=== PATIENT | female | born 1945 | race Two or more races ===

== ENCOUNTER → 2016-07-05 | Outpatient (CLI) | payer MEDICARE, OTHER | END | disposition home or self-care (01) | LOC: RADPV 09:10 | PROVIDERS: ATTEND Internal Medicine Cardiovascular Disease | DX: I50.9 Heart failure, unspecified (principal); I35.9 Nonrheumatic aortic valve disorder, unspecified; I51.7 Cardiomegaly; I35.1 Nonrheumatic aortic (valve) insufficiency; I70.8 Atherosclerosis of other arteries; I34.0 Nonrheumatic mitral (valve) insufficiency; I37.1 Nonrheumatic pulmonary valve insufficiency | CPT/HCPCS: 93306 ==

== ENCOUNTER → 2017-05-01 | Outpatient (CLI) | payer MEDICARE, OTHER | END | disposition home or self-care (01) | LOC: RADPV 11:46 | PROVIDERS: ATTEND Internal Medicine Cardiovascular Disease | DX: I08.3 Combined rheumatic disorders of mitral, aortic and tricuspid valves (principal) | CPT/HCPCS: 93306 ==

== ENCOUNTER 2019-04-09 15:46 | Inpatient (IN) | payer MEDICARE, OTHER ==
[~2019-04-09] VITALS: Ht 162.6 cm; Wt 122.5 kg
[2019-04-09] MEDS ORDERED: WARF3TAB29 PO (15:57)
[2019-04-09] MEDS ORDERED: ESCI20TA PO (15:57)
[2019-04-09] MEDS ORDERED: AMLO10TA7 PO (15:57)
[2019-04-09] MEDS ORDERED: METO-558 PO (15:57)
[2019-04-09] MEDS ORDERED: LISI-662 PO (15:57)
[2019-04-09] MEDS ORDERED: CLON.2 PO (15:57)
[2019-04-09] MEDS ORDERED: TIOT185 IH (15:57)
[2019-04-09 16:10] LABS: BASOPHILS % (AUTO) 0.6 % (0.0-2.0); EOSINOPHILS % (AUTO) 0 % (1.0-6.0); HEMATOCRIT 33.5 % (36-46); HEMOGLOBIN 10.7 g/dL (12.0-16.0); LYMPHOCYTES # (AUTO) 0.8 K/uL (1.0-4.8); LYMPHOCYTES % (AUTO) 11.6 % (22.0-44.0); MEAN CORPUSCULAR VOLUME 81 fL (80-100); MONOCYTES # (AUTO) 0.4 K/uL (0.1-1.0); MONOCYTES % (AUTO) 6.3 % (2.0-9.0); NEUTROPHILS # (AUTO) 5.8 K/uL (1.8-7.7); NEUTROPHILS % (AUTO) 81.5 % (40.0-70.0); PLATELET COUNT (AUTO) 268 K/uL (150-450); RED BLOOD CELL COUNT(AUTO) 4.14 MIL/uL (4.00-5.20); RED CELL DISTRIBUTION WIDTH 16.9 % (11.5-14.5)
[2019-04-09] MEDS ORDERED: ASPIRIN 81 MG CHEWABLE TABLET PO ONE (16:15)
[2019-04-09 16:30] LABS: ANION GAP 10 mmol/L (8-16); CALCIUM, TOTAL 8.6 mg/dL (8.8-10.5); CARBON DIOXIDE 28 mmol/L (22-29); CHLORIDE 102 mmol/L (98-107); CREATININE 0.76 mg/dL (0.60-1.30); GLUCOSE,RANDOM 113 mg/dL (70-110); POTASSIUM 3.7 mmol/L (3.5-5.1); SODIUM SERUM 140 mmol/L (136-145); UREA NITROGEN, BLOOD 12 mg/dL (7-18)
[2019-04-09 16:37] LABS: ALANINE AMINOTRANSFERASE 42 U/L (12-78); ALBUMIN 3.5 g/dL (3.4-5.0); ALKALINE PHOSPHATASE 134 U/L (46-116); ASPARTATE AMINOTRANSFERASE 38 U/L (15-37); BILIRUBIN,TOTAL 1.1 mg/dL (0.1-1.0); CREATINE KINASE, TOTAL ONLY 42 U/L (26-192); TOTAL PROTEIN, SERUM 7.3 g/dL (6.4-8.2)
[2019-04-09 16:38] LABS: GLOMERULAR FILTR. RATE CALC > 60 mL/min (>60)
[2019-04-09 16:57] LABS: B-TYPE NATRIURETIC PEPTIDE 518 pg/mL (0-100)
[2019-04-09] MEDS ORDERED: FUROSEMIDE 40 MG/4 ML VIAL IVP ONE ×2 (17:00→21:30)
[2019-04-09 18:20] LABS: APPEARANCE,URINE CLEAR (CLEAR); BILIRUBIN,URINE NEGATIVE (NEGATIVE); GLUCOSE, URINE (UA) NEGATIVE (NEGATIVE); KETONES,URINE NEGATIVE (NEGATIVE); LEUKOCYTE ESTERASE ,URINE NEGATIVE (NEGATIVE); NITRATE,URINE NEGATIVE (NEGATIVE); OCCULT BLOOD,URINE NEGATIVE (NEGATIVE); PH,URINE 6.5 (5.0-8.0); PROTEIN,URINE TRACE (NEGATIVE); UROBILINOGEN,URINE 0.2 mg/dL (<=1.0)
[2019-04-09] MEDS ORDERED: OSELTAMIVIR PHOSPHATE 75 MG CAPSULE PO ONE (21:30)
[2019-04-09] MEDS ORDERED: MAGNESIUM SULFATE 4 GM/WATER 100 ML IV PRN (22:00)
[2019-04-09] MEDS ORDERED: POTASSIUM CHLORIDE 20 MEQ ER TABLET PO PRN (22:00)
[2019-04-09] MEDS ORDERED: ALBUTEROL SULFATE 2.5 MG/0.5 ML NEB SOLUTION NEB PRN (22:00)
[2019-04-09] MEDS ORDERED: ZOLPIDEM TARTRATE 5 MG TABLET PO PRN (22:00)
[2019-04-09] MEDS ORDERED: MAGNESIUM OXIDE 400 MG TABLET PO PRN (22:00)
[2019-04-09] MEDS ORDERED: MAGNESIUM SULFATE 2 GM/WATER 50 ML IV PRN (22:00)
[2019-04-09] MEDS ORDERED: IPRATROPIUM BROMIDE 0.5 MG/2.5 ML NEB SOLUTION NEB PRN (22:00)
[2019-04-09] MEDS ORDERED: 0.9% SODIUM CHLORIDE 10 ML SYRINGE IVP PRN (22:00)
[2019-04-09] MEDS ORDERED: ONDANSETRON HCL 4 MG/2 ML VIAL IVP PRN (22:00)
[2019-04-09 23:17] LABS: INFLUENZA TYPE A NEGATIVE FOR TYPE A (NEGATIVE); INFLUENZA TYPE B NEGATIVE FOR TYPE B (NEGATIVE)
[2019-04-10] MEDS: HEPARIN SODIUM,PORCINE 5,000 UNITS/ML VIAL SQ SCH ×4 (00:02→23:46)
[2019-04-10] MEDS: ALBUTEROL SULFATE 2.5 MG/0.5 ML NEB SOLUTION NEB SCH ×4 (02:31→20:43)
[2019-04-10] MEDS: IPRATROPIUM BROMIDE 0.5 MG/2.5 ML NEB SOLUTION NEB SCH ×4 (02:31→20:43)
[2019-04-10 06:40] LABS: BASOPHILS % (AUTO) 0.4 % (0.0-2.0); EOSINOPHILS % (AUTO) 0.1 % (1.0-6.0); HEMATOCRIT 33.1 % (36-46); HEMOGLOBIN 10.6 g/dL (12.0-16.0); LYMPHOCYTES % (AUTO) 14.8 % (22.0-44.0); MEAN CORPUSCULAR HEMOGLOBIN 26.1 pg (26.0-34.0); MEAN CORPUSCULAR HGB CONC 32.2 G/dL (31.0-37.0); MEAN CORPUSCULAR VOLUME 81 fL (80-100); MONOCYTES # (AUTO) 0.8 K/uL (0.1-1.0); MONOCYTES % (AUTO) 11.7 % (2.0-9.0); NEUTROPHILS # (AUTO) 4.9 K/uL (1.8-7.7); PLATELET COUNT (AUTO) 265 K/uL (150-450); RED BLOOD CELL COUNT(AUTO) 4.08 MIL/uL (4.00-5.20); RED CELL DISTRIBUTION WIDTH 16.8 % (11.5-14.5)
[2019-04-10 06:53] LABS: ANION GAP 6 mmol/L (8-16); CALCIUM, TOTAL 8.6 mg/dL (8.8-10.5); CARBON DIOXIDE 34 mmol/L (22-29); CHLORIDE 102 mmol/L (98-107); CREATININE 0.89 mg/dL (0.60-1.30); GLUCOSE,RANDOM 94 mg/dL (70-110); POTASSIUM 3.5 mmol/L (3.5-5.1); SODIUM SERUM 142 mmol/L (136-145); UREA NITROGEN, BLOOD 12 mg/dL (7-18)
[2019-04-10 06:56] LABS: GLOMERULAR FILTR. RATE CALC > 60 mL/min (>60)
[2019-04-10] MEDS: PANTOPRAZOLE SODIUM 40 MG DR TABLET PO SCH (08:43)
[2019-04-10] MEDS ORDERED: OSELTAMIVIR PHOSPHATE 75 MG CAPSULE PO SCH (09:00)
[2019-04-10] MEDS: METOPROLOL SUCCINATE 50 MG ER TABLET PO SCH (09:17)
[2019-04-10] MEDS: AmLODIPine BESYLATE 10 MG TABLET PO SCH (09:18)
[2019-04-10] MEDS: LISINOPRIL 20 MG TABLET PO SCH (09:18)
[2019-04-10] MEDS: ESCITALOPRAM OXALATE 20 MG TABLET PO SCH (09:19)
[2019-04-10] MEDS: CloNIDine HCL 0.2 MG TABLET PO SCH (09:21)
[2019-04-10] MEDS: FUROSEMIDE 40 MG/4 ML VIAL IVP SCH ×2 (12:13→21:00)
[2019-04-10] MEDS ORDERED: PERFLUTREN PROTEIN-A MICROSPHERES 0.22 MG/ML 3 ML VIAL IVP ONE ×2 (12:15→13:00)
[2019-04-10 16:32] VITALS: BP 155/94
[2019-04-10 18:45] VITALS: BP 136/76
[2019-04-10 20:05] VITALS: BP 116/83
[2019-04-10 22:57] VITALS: BP 121/82
[2019-04-11] MEDS: ALBUTEROL SULFATE 2.5 MG/0.5 ML NEB SOLUTION NEB SCH ×4 (02:45→20:06)
[2019-04-11] MEDS: IPRATROPIUM BROMIDE 0.5 MG/2.5 ML NEB SOLUTION NEB SCH ×4 (02:45→20:06)
[2019-04-11 04:15] VITALS: BP 131/82
[2019-04-11] MEDS: HEPARIN SODIUM,PORCINE 5,000 UNITS/ML VIAL SQ SCH ×3 (08:00→23:31)
[2019-04-11 08:42] VITALS: BP 137/79
[2019-04-11] MEDS: METOPROLOL SUCCINATE 50 MG ER TABLET PO SCH (09:00)
[2019-04-11] MEDS: CloNIDine HCL 0.2 MG TABLET PO SCH (09:00)
[2019-04-11] MEDS: FUROSEMIDE 40 MG/4 ML VIAL IVP SCH ×2 (09:07→21:03)
[2019-04-11] MEDS: AmLODIPine BESYLATE 10 MG TABLET PO SCH (09:08)
[2019-04-11] MEDS: ESCITALOPRAM OXALATE 20 MG TABLET PO SCH (09:08)
[2019-04-11] MEDS: PANTOPRAZOLE SODIUM 40 MG DR TABLET PO SCH (09:09)
[2019-04-11] MEDS: LISINOPRIL 20 MG TABLET PO SCH (09:09)
[2019-04-11 09:34] LABS: BASOPHILS % (AUTO) 0.4 % (0.0-2.0); EOSINOPHILS % (AUTO) 0.8 % (1.0-6.0); HEMATOCRIT 33.6 % (36-46); HEMOGLOBIN 10.6 g/dL (12.0-16.0); LYMPHOCYTES # (AUTO) 1.1 K/uL (1.0-4.8); LYMPHOCYTES % (AUTO) 14.5 % (22.0-44.0); MEAN CORPUSCULAR HGB CONC 31.6 G/dL (31.0-37.0); MEAN CORPUSCULAR VOLUME 82 fL (80-100); MONOCYTES # (AUTO) 0.5 K/uL (0.1-1.0); MONOCYTES % (AUTO) 6.3 % (2.0-9.0); NEUTROPHILS # (AUTO) 5.7 K/uL (1.8-7.7); PLATELET COUNT (AUTO) 281 K/uL (150-450); RED BLOOD CELL COUNT(AUTO) 4.09 MIL/uL (4.00-5.20); RED CELL DISTRIBUTION WIDTH 16.5 % (11.5-14.5)
[2019-04-11 09:45] LABS: CALCIUM, TOTAL 8.3 mg/dL (8.8-10.5); CREATININE 0.95 mg/dL (0.60-1.30); MAGNESIUM 1.4 mg/dL (1.80-2.40)
[2019-04-11 09:49] LABS: POTASSIUM 2.6 mmol/L (3.5-5.1)
[2019-04-11] MEDS ORDERED: SODIUM CHLORIDE 0.9% 1,000 ML ONE (09:59)
[2019-04-11] MEDS: POTASSIUM CHL 10 MEQ/WATER 50 ML IV PRN ×4 (10:26→13:37)
[2019-04-11 12:53] VITALS: BP 123/96
[2019-04-11 16:43] VITALS: BP 167/95
[2019-04-11 20:16] VITALS: BP 166/99
[2019-04-12 00:20] VITALS: BP 133/78
[2019-04-12] MEDS: IPRATROPIUM BROMIDE 0.5 MG/2.5 ML NEB SOLUTION NEB SCH ×4 (02:11→20:22)
[2019-04-12] MEDS: ALBUTEROL SULFATE 2.5 MG/0.5 ML NEB SOLUTION NEB SCH ×4 (02:12→20:22)
[2019-04-12 04:24] VITALS: BP 136/81
[2019-04-12 08:20] LABS: BASOPHILS % (AUTO) 0.7 % (0.0-2.0); EOSINOPHILS % (AUTO) 0.8 % (1.0-6.0); HEMATOCRIT 35.5 % (36-46); HEMOGLOBIN 11.5 g/dL (12.0-16.0); LYMPHOCYTES % (AUTO) 13.1 % (22.0-44.0); MEAN CORPUSCULAR HEMOGLOBIN 26.4 pg (26.0-34.0); MEAN CORPUSCULAR HGB CONC 32.3 G/dL (31.0-37.0); MEAN CORPUSCULAR VOLUME 82 fL (80-100); MONOCYTES # (AUTO) 0.7 K/uL (0.1-1.0); MONOCYTES % (AUTO) 9.2 % (2.0-9.0); NEUTROPHILS # (AUTO) 5.9 K/uL (1.8-7.7); NEUTROPHILS % (AUTO) 76.2 % (40.0-70.0); PLATELET COUNT (AUTO) 310 K/uL (150-450); RED BLOOD CELL COUNT(AUTO) 4.35 MIL/uL (4.00-5.20); RED CELL DISTRIBUTION WIDTH 16.5 % (11.5-14.5)
[2019-04-12 08:27] LABS: ANION GAP 6 mmol/L (8-16); CARBON DIOXIDE 37 mmol/L (22-29); CHLORIDE 100 mmol/L (98-107); CREATININE 0.87 mg/dL (0.60-1.30); GLUCOSE,RANDOM 112 mg/dL (70-110); POTASSIUM 3.3 mmol/L (3.5-5.1); SODIUM SERUM 143 mmol/L (136-145); UREA NITROGEN, BLOOD 12 mg/dL (7-18)
[2019-04-12 08:28] LABS: GLOMERULAR FILTR. RATE CALC > 60 mL/min (>60)
[2019-04-12 08:32] VITALS: BP 141/86
[2019-04-12] MEDS: FUROSEMIDE 40 MG/4 ML VIAL IVP SCH ×2 (09:05→16:23)
[2019-04-12] MEDS: AmLODIPine BESYLATE 10 MG TABLET PO SCH (09:05)
[2019-04-12] MEDS: METOPROLOL SUCCINATE 50 MG ER TABLET PO SCH (09:06)
[2019-04-12] MEDS: CloNIDine HCL 0.2 MG TABLET PO SCH (09:06)
[2019-04-12] MEDS: ESCITALOPRAM OXALATE 20 MG TABLET PO SCH (09:06)
[2019-04-12] MEDS: LISINOPRIL 20 MG TABLET PO SCH (09:06)
[2019-04-12] MEDS: PANTOPRAZOLE SODIUM 40 MG DR TABLET PO SCH (09:08)
[2019-04-12] MEDS: HEPARIN SODIUM,PORCINE 5,000 UNITS/ML VIAL SQ SCH ×3 (09:14→23:55)
[2019-04-12 12:05] VITALS: BP 100/56
[2019-04-12 16:33] VITALS: BP 129/84
[2019-04-12 20:05] VITALS: BP 148/75
[2019-04-13] VITALS (7 sets, daily range): BP systolic 113–129; BP diastolic 50–79
[2019-04-13] MEDS: ALBUTEROL SULFATE 2.5 MG/0.5 ML NEB SOLUTION NEB SCH ×4 (03:17→20:43)
[2019-04-13] MEDS: IPRATROPIUM BROMIDE 0.5 MG/2.5 ML NEB SOLUTION NEB SCH ×4 (03:18→20:43)
[2019-04-13 05:36] LABS: BASOPHILS % (AUTO) 0.7 % (0.0-2.0); EOSINOPHILS % (AUTO) 2.5 % (1.0-6.0); HEMATOCRIT 32.4 % (36-46); HEMOGLOBIN 10.3 g/dL (12.0-16.0); LYMPHOCYTES % (AUTO) 16.2 % (22.0-44.0); MEAN CORPUSCULAR HGB CONC 31.8 G/dL (31.0-37.0); MEAN CORPUSCULAR VOLUME 82 fL (80-100); MONOCYTES # (AUTO) 0.6 K/uL (0.1-1.0); MONOCYTES % (AUTO) 9.6 % (2.0-9.0); NEUTROPHILS # (AUTO) 4.5 K/uL (1.8-7.7); PLATELET COUNT (AUTO) 262 K/uL (150-450); RED BLOOD CELL COUNT(AUTO) 3.97 MIL/uL (4.00-5.20); RED CELL DISTRIBUTION WIDTH 16.9 % (11.5-14.5)
[2019-04-13 05:42] LABS: ANION GAP 6 mmol/L (8-16); CALCIUM, TOTAL 8.3 mg/dL (8.8-10.5); CARBON DIOXIDE 36 mmol/L (22-29); CHLORIDE 100 mmol/L (98-107); CREATININE 0.91 mg/dL (0.60-1.30); GLUCOSE,RANDOM 101 mg/dL (70-110); POTASSIUM 3.7 mmol/L (3.5-5.1); SODIUM SERUM 142 mmol/L (136-145); UREA NITROGEN, BLOOD 15 mg/dL (7-18)
[2019-04-13 05:49] LABS: GLOMERULAR FILTR. RATE CALC > 60 mL/min (>60)
[2019-04-13 05:59] LABS: B-TYPE NATRIURETIC PEPTIDE 230 pg/mL (0-100)
[2019-04-13] MEDS: HEPARIN SODIUM,PORCINE 5,000 UNITS/ML VIAL SQ SCH ×2 (08:36→16:00)
[2019-04-13] MEDS: CloNIDine HCL 0.2 MG TABLET PO SCH (08:37)
[2019-04-13] MEDS: FUROSEMIDE 40 MG/4 ML VIAL IVP SCH ×2 (08:37→16:00)
[2019-04-13] MEDS: PANTOPRAZOLE SODIUM 40 MG DR TABLET PO SCH (08:37)
[2019-04-13] MEDS: METOPROLOL SUCCINATE 50 MG ER TABLET PO SCH (08:37)
[2019-04-13] MEDS: AmLODIPine BESYLATE 10 MG TABLET PO SCH (10:36)
[2019-04-13] MEDS: ESCITALOPRAM OXALATE 20 MG TABLET PO SCH (10:36)
[2019-04-13] MEDS: LISINOPRIL 20 MG TABLET PO SCH (10:36)
[2019-04-13] MEDS: ACETAMINOPHEN 325 MG TABLET PO PRN (18:29)
[2019-04-13] MEDS: APIXABAN 5 MG TABLET PO SCH (20:40)
[2019-04-14] MEDS: HEPARIN SODIUM,PORCINE 5,000 UNITS/ML VIAL SQ SCH ×4 (00:44→23:49)
[2019-04-14] MEDS: IPRATROPIUM BROMIDE 0.5 MG/2.5 ML NEB SOLUTION NEB SCH ×4 (02:00→20:23)
[2019-04-14] MEDS: ALBUTEROL SULFATE 2.5 MG/0.5 ML NEB SOLUTION NEB SCH ×4 (02:00→20:23)
[2019-04-14 03:45] VITALS: BP 139/71
[2019-04-14] MEDS ORDERED: INFLUENZA VIRUS VACCINE QVS 2019-20 (3YR+)/PF 60 MCG/0.5 ML SYRINGE IM ONE (04:45)
[2019-04-14 07:25] VITALS: BP 144/75
[2019-04-14] MEDS: APIXABAN 5 MG TABLET PO SCH ×2 (08:12→20:43)
[2019-04-14] MEDS: PANTOPRAZOLE SODIUM 40 MG DR TABLET PO SCH (08:12)
[2019-04-14] MEDS: FUROSEMIDE 40 MG/4 ML VIAL IVP SCH ×2 (08:12→16:09)
[2019-04-14] MEDS: ESCITALOPRAM OXALATE 20 MG TABLET PO SCH (08:12)
[2019-04-14] MEDS: CloNIDine HCL 0.2 MG TABLET PO SCH (08:12)
[2019-04-14] MEDS: METOPROLOL SUCCINATE 50 MG ER TABLET PO SCH (08:13)
[2019-04-14 09:46] VITALS: BP 135/78
[2019-04-14] MEDS: AmLODIPine BESYLATE 10 MG TABLET PO SCH (09:47)
[2019-04-14] MEDS: LISINOPRIL 20 MG TABLET PO SCH (09:48)
[2019-04-14 12:21] LABS: ABG A-A DIFF O2 40.8 mmHg (10-20.0); ABG BASE EXCESS 10.1 mmol/L (-2.0-3.0); ABG HCO3 32.5 mmol/L (22.0-26.0); ABG METHEMOGLOBIN 0.3 % (0.0-1.5); ABG OXYGEN CONTENT 13.4 mL/dL (15.0-23.0); ABG OXYGEN SATURATION 87.7 % (95.0-98.0); ABG OXYHEMOGLOBIN 86.6 % (94.0-100.0); ABG PCO2 49 mmHg (35-45); ABG PH 7.457 (7.35-7.450); PO2, ARTERIAL BG 49.9 mmHg (75.0-83.0); SOURCE, BLOOD GAS ARTERIAL; TEMPERATURE, FAHRENHEIT, BG 98.4 FAHREN (96.0-98.6)
[2019-04-14 12:22] LABS: SITE, BLOOD GAS LFT RADIAL
[2019-04-14 15:43] VITALS: BP 105/77
[2019-04-14] MEDS: SPIRONOLACTONE 25 MG TABLET PO SCH (16:57)
[2019-04-14 19:33] VITALS: BP 139/68
[2019-04-15 00:29] VITALS: BP 150/86
[2019-04-15] MEDS: ALBUTEROL SULFATE 2.5 MG/0.5 ML NEB SOLUTION NEB SCH ×4 (02:32→20:52)
[2019-04-15] MEDS: IPRATROPIUM BROMIDE 0.5 MG/2.5 ML NEB SOLUTION NEB SCH ×4 (02:32→20:53)
[2019-04-15 04:22] VITALS: BP 132/84
[2019-04-15 08:05] VITALS: BP 138/68
[2019-04-15] MEDS: CloNIDine HCL 0.2 MG TABLET PO SCH (08:41)
[2019-04-15] MEDS: APIXABAN 5 MG TABLET PO SCH ×2 (08:41→20:30)
[2019-04-15] MEDS: METOPROLOL SUCCINATE 50 MG ER TABLET PO SCH (08:42)
[2019-04-15] MEDS: AmLODIPine BESYLATE 10 MG TABLET PO SCH (08:42)
[2019-04-15] MEDS: ESCITALOPRAM OXALATE 20 MG TABLET PO SCH (08:42)
[2019-04-15] MEDS: SPIRONOLACTONE 25 MG TABLET PO SCH (08:42)
[2019-04-15] MEDS: PANTOPRAZOLE SODIUM 40 MG DR TABLET PO SCH (08:42)
[2019-04-15] MEDS: FUROSEMIDE 40 MG/4 ML VIAL IVP SCH ×2 (08:43→16:08)
[2019-04-15] MEDS: LISINOPRIL 20 MG TABLET PO SCH (08:43)
[2019-04-15] MEDS: HEPARIN SODIUM,PORCINE 5,000 UNITS/ML VIAL SQ SCH ×3 (08:43→23:39)
[2019-04-15] MEDS: BUDESONIDE 0.5 MG/2 ML NEB SOLUTION NEB SCH ×2 (09:11→20:53)
[2019-04-15] MEDS ORDERED: ADV250 IH (10:45)
[2019-04-15] MEDS ORDERED: ALBU8HFA IH (10:45)
[2019-04-15] MEDS ORDERED: SPIR25 PO (10:45)
[2019-04-15] MEDS ORDERED: APIX5TAB PO (10:45)
[2019-04-15 11:41] VITALS: BP 100/67
[2019-04-15 16:04] VITALS: BP 119/80
[2019-04-15] MEDS: ACETAMINOPHEN 325 MG TABLET PO PRN (20:33)
[2019-04-15 20:41] VITALS: BP 122/53
[2019-04-16 00:12] VITALS: BP 128/66
[2019-04-16] MEDS: IPRATROPIUM BROMIDE 0.5 MG/2.5 ML NEB SOLUTION NEB SCH ×3 (01:25→14:00)
[2019-04-16] MEDS: ALBUTEROL SULFATE 2.5 MG/0.5 ML NEB SOLUTION NEB SCH ×3 (01:25→14:00)
[2019-04-16 04:31] VITALS: BP 143/79
[2019-04-16] MEDS: FUROSEMIDE 40 MG/4 ML VIAL IVP SCH (08:25)
[2019-04-16] MEDS: HEPARIN SODIUM,PORCINE 5,000 UNITS/ML VIAL SQ SCH (08:25)
[2019-04-16] MEDS: SPIRONOLACTONE 25 MG TABLET PO SCH (08:25)
[2019-04-16] MEDS: ESCITALOPRAM OXALATE 20 MG TABLET PO SCH (08:26)
[2019-04-16] MEDS: LISINOPRIL 20 MG TABLET PO SCH (08:26)
[2019-04-16] MEDS: APIXABAN 5 MG TABLET PO SCH (08:26)
[2019-04-16] MEDS: METOPROLOL SUCCINATE 50 MG ER TABLET PO SCH (08:26)
[2019-04-16] MEDS: CloNIDine HCL 0.2 MG TABLET PO SCH (08:26)
[2019-04-16] MEDS: PANTOPRAZOLE SODIUM 40 MG DR TABLET PO SCH (08:27)
[2019-04-16] MEDS: AmLODIPine BESYLATE 10 MG TABLET PO SCH (08:27)
[2019-04-16 08:33] VITALS: BP 148/109
[2019-04-16] MEDS: BUDESONIDE 0.5 MG/2 ML NEB SOLUTION NEB SCH (09:09)
[2019-04-16 11:52] VITALS: BP 108/63
[2019-04-16 15:50] VITALS: BP 130/71
== END 2019-04-16 16:13 | disposition home or self-care (01) | DRG 291 ==
LOC: EMS 15:52 → AHU 04-10 12:11 → 5S 04-13 19:18
PROVIDERS: ADMIT Internal Medicine; ATTEND Internal Medicine
DX: I11.0 Hypertensive heart disease with heart failure (principal); I50.31 Acute diastolic (congestive) heart failure; J81.0 Acute pulmonary edema; J44.1 Chronic obstructive pulmonary disease with (acute) exacerbation; I48.20 Chronic atrial fibrillation, unspecified; Z68.42 Body mass index [BMI] 45.0-49.9, adult; J11.1 Influenza due to unidentified influenza virus with other respiratory manifestations; J20.9 Acute bronchitis, unspecified; I35.0 Nonrheumatic aortic (valve) stenosis; E66.9 Obesity, unspecified; E78.5 Hyperlipidemia, unspecified; G47.33 Obstructive sleep apnea (adult) (pediatric); Z82.49 Family history of ischemic heart disease and other diseases of the circulatory system; Z82.5 Family history of asthma and other chronic lower respiratory diseases; Z83.3 Family history of diabetes mellitus; Z23 Encounter for immunization
CPT/HCPCS: 71250; 82805; 83735; 84132; 87804; 93005; 93306; 94060; 94640; G0378; J1644; J1940; J2405; J3475; J3480; J7030